=== PATIENT | female | born 1985 | race Caucasian/White ===

== ENCOUNTER 2019-06-17 19:03 | Emergency (ER) | payer MEDICAID ==
[~2019-06-17] VITALS: Ht 160 cm; Wt 71.0 kg
[2019-06-17 22:36] LABS: CLARITY URINE CLEAR (CLEAR); COLOR URINE YELLOW (YELLOW); KETONES URINE TRACE (NEGATIVE); LEUKOCYTE ESTERASE URINE NEGATIVE (NEGATIVE); NITRITE URINE NEGATIVE (NEGATIVE); OCCULT BLOOD URINE NEGATIVE (NEGATIVE); PH URINE 5.5 (4.5-8.0); PROTEIN URINE NEGATIVE (NEGATIVE); SPECIFIC GRAVITY URINE 1.024 (1.005-1.030); UROBILINOGEN URINE 0.2 E.U./dL (0.2-1.0)
[2019-06-18 00:54] LABS: BASOPHILS % 0.4 % (0.0-2.0); EOSINOPHILS % 1.2 % (0.0-5.0); HEMATOCRIT. 36.1 % (36.0-48.0); HEMOGLOBIN. 12.4 g/dL (12.0-16.0); LYMPHOCYTES % 51.9 % (20.0-50.0); MEAN CORPUSCULAR HEMOGLOBIN 30.3 pg (28.0-32.0); MEAN CORPUSCULAR VOLUME 88.2 fL (81.0-99.0); MEAN PLATELET VOLUME 7.4 fl (7.4-10.4); MONOCYTES % 7.1 % (2.0-8.0); NEUTROPHILS % 39.4 % (40.0-76.0); PLATELET 249 x1000/uL (130-400)
[2019-06-18 01:00] LABS: CHLORIDE 105 mEq/L (98-107)
[2019-06-18 01:20] LABS: B-HCG QUANTITATIVE 11536 mIU/mL (<3)
[2019-06-18 02:14] VITALS: BP 121/70
== END 2019-06-18 02:49 | disposition home or self-care (01) ==
LOC: ER 19:03
DX: O20.0 Threatened abortion (principal); E11.65 Type 2 diabetes mellitus with hyperglycemia; M54.5 Low back pain; Z3A.01 Less than 8 weeks gestation of pregnancy
CPT/HCPCS: 36415; 76830; 76856; 80053; 81003; 83690; 84702; 85025; 86850; 86900; 86901; 99284; Z7610

== ENCOUNTER 2022-03-19 14:00 | Emergency (ER) | payer MEDICAID ==
[~2022-03-19] VITALS: Ht 157.5 cm; Wt 70.0 kg
[2022-03-19] MEDS ORDERED: ACETAMINOPHEN 325MG TABLET PO NR (14:18)
[2022-03-19] MEDS ORDERED: ACETAMINOPHEN 325MG TABLET PO STA (14:18)
[2022-03-19 15:27] LABS: BASOPHILS % 0.2 % (0.0-2.0); HEMATOCRIT. 37.7 % (36.0-48.0); LYMPHOCYTES % 7.2 % (20.0-50.0); MEAN CORPUSCULAR VOLUME 87.3 fL (81.0-99.0); MEAN PLATELET VOLUME 7.4 fl (7.4-10.4); MONOCYTES % 6.6 % (2.0-8.0); PLATELET 205 x1000/uL (130-400); RED BLOOD CELL COUNT 4.32 mill/uL (4.2-5.4); RED CELL DISTRIBUTION WIDTH 13.4 % (11.6-14.6)
[2022-03-19 15:33] LABS: CHLORIDE 99 mEq/L (98-107)
[2022-03-19 15:49] LABS: HCG SCREEN NEGATIVE
[2022-03-19 19:15] LABS: CLARITY URINE CLEAR (CLEAR); COLOR URINE DARK YELLOW (YELLOW); KETONES URINE 4+ (NEGATIVE); LEUKOCYTE ESTERASE URINE NEGATIVE (NEGATIVE); NITRITE URINE NEGATIVE (NEGATIVE); OCCULT BLOOD URINE 2+ (NEGATIVE); PROTEIN URINE 2+ (NEGATIVE); SPECIFIC GRAVITY URINE 1.026 (1.005-1.030)
[2022-03-19] MEDS ORDERED: KETOROLAC 15MG/ML VIAL IV NR (19:15)
[2022-03-19] MEDS ORDERED: SODIUM CHLORIDE 0.9% 1,000 ML IV NR (19:30)
[2022-03-19] MEDS ORDERED: CEFTRIAXONE 1 G PREMIX 50 ML IV NR (20:15)
[2022-03-19] MEDS ORDERED: SULF1TAB48 MT (22:00)
[2022-03-19] MEDS ORDERED: IBUP-2029 MT (22:01)
[2022-03-19 22:16] VITALS: BP 121/75
== END 2022-03-19 22:35 | disposition home or self-care (01) ==
LOC: ER 14:00
DX: N10 Acute pyelonephritis (principal); E11.9 Type 2 diabetes mellitus without complications; Z20.822 Contact with and (suspected) exposure to COVID-19
CPT/HCPCS: 36415; 71045; 74176; 80053; 81003; 83690; 84703; 85025; 87077; 87086; 87186; 87426; 96365; 96375; 99285; C9803; J0696; J1885; J7030

== ENCOUNTER 2022-05-21 19:05 | Emergency (ER) | payer MEDICAID, OTHER ==
[~2022-05-21] VITALS: Ht 157.5 cm; Wt 71.0 kg
[~2022-05-21 19:05] MED LIST: IBUP-2029 MT; SULF1TAB48 MT
[2022-05-21 19:19] VITALS: BP 140/87
[2022-05-21 20:16] LABS: CLARITY URINE CLEAR (CLEAR); COLOR URINE YELLOW (YELLOW); KETONES URINE 1+ (NEGATIVE); LEUKOCYTE ESTERASE URINE TRACE (NEGATIVE); NITRITE URINE NEGATIVE (NEGATIVE); OCCULT BLOOD URINE 1+ (NEGATIVE); PH URINE 5.5 (4.5-8.0); PROTEIN URINE NEGATIVE (NEGATIVE); SPECIFIC GRAVITY URINE 1.031 (1.005-1.030); UROBILINOGEN URINE 0.2 E.U./dL (0.2-1.0)
[2022-05-21 20:35] LABS: BASOPHILS % 0.4 % (0.0-2.0); EOSINOPHILS % 0.2 % (0.0-5.0); HEMATOCRIT. 35.8 % (36.0-48.0); HEMOGLOBIN. 12.4 g/dL (12.0-16.0); LYMPHOCYTES % 18.4 % (20.0-50.0); MEAN CORPUSCULAR HEMOGLOBIN 30.2 pg (28.0-32.0); MEAN CORPUSCULAR VOLUME 87.2 fL (81.0-99.0); MEAN PLATELET VOLUME 7.4 fl (7.4-10.4); MONOCYTES % 5.3 % (2.0-8.0); NEUTROPHILS % 75.7 % (40.0-76.0); PLATELET 276 x1000/uL (130-400); RED BLOOD CELL COUNT 4.11 mill/uL (4.2-5.4); RED CELL DISTRIBUTION WIDTH 13.3 % (11.6-14.6)
[2022-05-21 20:43] LABS: CHLORIDE 104 mEq/L (98-107)
[2022-05-21 20:56] LABS: HCG SCREEN NEGATIVE
[2022-05-21] MEDS ORDERED: ONDANSETRON 4MG ODT PO ONE (21:15)
[2022-05-21] MEDS ORDERED: LIDOCAINE HCL 1% 20ML VIAL (Pyxis) INJ INFIL ONE (21:15)
[2022-05-21] MEDS ORDERED: CEFTRIAXONE SODIUM 1 G/VIAL IM ONE (21:15)
[2022-05-21] MEDS ORDERED: ACETAMINOPHEN 325MG TABLET PO ONE (21:15)
[2022-05-21] MEDS ORDERED: CEFTRIAXONE 1 G PREMIX 50 ML IV ONE (21:45)
[2022-05-21] MEDS ORDERED: IBUP-2028 MT (22:32)
[2022-05-21] MEDS ORDERED: PHEN-815 MT (22:32)
[2022-05-21] MEDS ORDERED: CIPR-263 MT (22:32)
== END 2022-05-21 23:58 | disposition home or self-care (01) ==
LOC: ER 19:14
DX: N10 Acute pyelonephritis (principal); E11.65 Type 2 diabetes mellitus with hyperglycemia; Z87.440 Personal history of urinary (tract) infections; Z79.4 Long term (current) use of insulin
CPT/HCPCS: 36415; 80053; 81003; 81025; 83690; 84703; 85025; 87077; 87086; 87186; 96365; 99284; J0696; Q0162; Z7610